=== PATIENT | female | born 2000 | race Caucasian/White ===

== ENCOUNTER 2021-09-02 12:20 | Outpatient (CLI) | payer BC, SELFPAY ==
[2021-09-02 13:06] LABS: Basophils Absolute Auto 0.1 K/mm3 (0.0-0.1); Basophils Percent Auto 0.8 % (0.2-1.2); Eosinophils Absolute Auto 0.1 K/mm3 (0-0.3); Eosinophils Percent Auto 0.8 % (0-4.4); Hematocrit 37.2 % (37.0-47.0); Hemoglobin 12.9 g/dL (12.0-15.0); Immature Granulocyte Absolute 0.05 K/mm3 (0.00-0.031); Immature Granulocyte Percent A 0.7 % (0-0.5); Lymphocytes Absolute Auto 2.99 K/mm3 (0.9-3.2); Lymphocytes Percent Auto 39.8 % (18.3-44.2); Mean Corpuscular HGB Conc 34.7 g/dl (32-36); Mean Corpuscular Hemoglobin 30.5 pg (26-34); Mean Corpuscular Volume 87.9 fl (80-100); Mean Platelet Volume 9.6 fl (7.4-10.4); Monocytes Absolute Auto 0.4 K/mm3 (0.1-0.6); Monocytes Percent Auto 5.7 % (2.6-8.5); Neutrophils Absolute Auto 3.9 K/mm3 (1.3-6.7); Neutrophils Percent Auto 52.2 % (45.5-73.1); Platelet Count Result 347 k/mm3 (150-375); Red Blood Count 4.23 M/mm3 (4.2-5.4); Red Cell Distribution Width 12.1 % (11.5-14.5); White Blood Count 7.5 K/mm3 (4.5-10.0)
[2021-09-02 13:18] LABS: Alanine Aminotransferase 17 U/L (4-35); Albumin Level 4.4 g/dL (3.5-5.1); Alkaline Phosphatase 43 U/L (38-126); Anion Gap 7 mmol/L (8-16); Aspartate Amino Transferase 20 U/L (14-36); Bilirubin,Total 0.4 mg/dL (0.2-1.3); Blood Urea Nitrogen 12 mg/dL (7-17); Calcium 9.4 mg/dL (8.4-10.2); Carbon Dioxide 27 mmol/L (22-30); Chloride 105 mmol/L (98-107); Cholesterol 164 mg/dL (0-200); Estimated Glomerular Filt Rate > 60; Glucose 88 mg/dL (65-110); HDL Direct 58 mg/dL; Sodium 139 mmol/L (137-145); Triglycerides 126 mg/dL (<150)
[2021-09-02 13:29] LABS: LDL Cholesterol Direct 72 mg/dL
== END 2021-09-02 12:21 | disposition home or self-care (01) ==
LOC: ANHLAB 12:22
PROVIDERS: PCP Internal Medicine; Visit Provider Internal Medicine
DX: Z00.00 Encounter for general adult medical examination without abnormal findings (principal)
CPT/HCPCS: 36415; 80053; 80061; 85025

== ENCOUNTER 2021-11-14 01:55 | Day surgery (SDC) | payer BC, SELFPAY ==
--- NOTE | 2021-11-11 15:17 | PC.NURSE ---
Report to the Outpatient Waiting Room, entrance under the green pavilion located off [facility], at time _0830 on date __11/14/21 . OR Time: ___0 . - You and your visitor will be asked a series of questions to screen for COVID 19 for your protection. - A mask is required within the hospital. Preoperative COVID Testing Requirements: No COVID Test needed if: (proof is required; if not received patient will have Rapid Test prior to entry) - Patient has received COVID Vaccine at least 14 days prior to procedure date or - Patient has positive COVID test result within last 90 days of surgery date. COVID Test needed if above criteria is not met If not COVID vaccinated a COVID test must be conducted within 72 hours of surgery and patient is asked to isolate self from time of testing until procedure. You will go to the [facility] for your COVID testing. The [facility] is located at the corner of [address] [facility]. You will only be called if COVID results are positive and your surgeon may reschedule your elective surgery date. Patients may have clear liquids (water, carbonated beverages, clear teas, apple juice) until 3 hours prior to surgery with a maximum of 20 ounces. - No food from midnight until time of surgery - Infants may have breast milk until 4 hours before surgery, infant formula 6 hours prior to surgery. - Children will be allowed to drink immediately following surgery. If applicable, please bring a bottle or sippy cup to assist with drinking. Juice, water, soda, and popsicles are readily available. For infants on formula, please bring formula the day of surgery. Pacifiers are allowed. Take the following medications with a SIP of water the morning of surgery: ___NONE Medications to discontinue per physician ____NONE Date to take last dose Please no make-up, nail somali, hairspray, perfume, deodorant, or body powder the day of surgery. No jewelry (including any body piercings) or valuables the day of surgery, leave them at home. Please take a shower or bath the night before, or the morning of, surgery with an antibacterial soap. Wear comfortable, loose fitting clothing. Children are encouraged to wear pajamas. - Jewelry must be removed prior to entering the operating room. Rings and piercings that are not removed may be cut off. - The hospital will not accept responsibility for valuables. - Please leave all valuables, including medications, at home the day of surgery. If you are going home after surgery, a licensed fuel truck driver must drive you home. - NO public transportation without another adult. - We recommend that an adult stay with you for 24 hours following discharge. - We also recommend that you do not drive, make important decision, drink alcoholic beverages, or take any drugs that were not prescribed by your health care provider for at least 24 hours after your discharge time. For Pediatric surgeries, we recommend two adults accompany the child home (only one inside the building at this time). One visitor will be allowed to accompany the patient into the hospital. Patients visitor will be instructed to remain with patient at all times or leave the building. We will allow the visitor to come back to the postoperative area when patient is ready. Follow any additional instructions given to you from your surgeon. Telephone instructions given to __PATIENT and asked if any additional questions and then verbalized understanding. Patient advised to call surgeon office or pre surgery nurse liaison [phone] if any additional questions.
--- NOTE | 2021-11-14 07:06 | WPDHPUPDATE1 ---
History and Physical Update Update Date/Time: 11/14/21 07:06 History and Physical has been reviewed, including an updated exam of the patient. There are NO changes in the patient's condition. Risks, benefits, and alternatives have been discussed and questions answered. Patient agrees to proceed with procedure.
--- NOTE | 2021-11-14 07:17 | WPDANESEPPF ---
Anes - Initial Pre Proc Eval Procedure: Operation Date: 11/14/21 10:30 Proposed Procedures p Excision Subcutaneous Mass Left Dorsal Wrist - Qamar Sotelo MD <Uvaldo Love MD - Last Filed: 11/19/21 15:25> Date/Time: 11/14/21 07:17 <Uvaldo Love MD - Last Filed: 11/19/21 15:25> Surgeon: Qamar Sotelo MD <Uvaldo Love MD - Last Filed: 11/19/21 15:25> Pre Op Diagnosis: subq mass left dorsal wrist <Uvaldo Love MD - Last Filed: 11/19/21 15:25> Patient Data Age: 21 Gender: F Height: 1.65 m Weight: 54.45 kg <Uvaldo Love MD - Last Filed: 11/19/21 15:25> Allergies Allergy/AdvReac Type Severity Reaction Status Date / Time No Known Allergies Allergy Verified 11/14/21 08:46 <Uvaldo Love MD - Last Filed: 11/19/21 15:25> Home Medications Medication Instructions Recorded Confirmed Type norethindrone acetate 1 mg-ethinyl 1 tablet PO DAILY 09/02/21 11/14/21 History estradiol 20 mcg tablet dextroamphetamine-amphetamine 10 10 mg PO .COMPLEX #60 tablet 09/23/21 11/14/21 Rx mg tablet hydrocodone-acetaminophen 1 tablet PO Q6H PRN #6 tablet MDD 6 11/14/21 Rx <Uvaldo Love MD - Last Filed: 11/19/21 15:25> Patient hx anesthesia problems: none <Alexander Jama DO - Last Filed: 11/14/21 09:21> Family hx anesthesia problems: none <Alexander Jama DO - Last Filed: 11/14/21 09:21> Results Review: All pre-operative results and documents have been reviewed as part of the pre-operative evaluation. <Uvaldo Love MD - Last Filed: 11/19/21 15:25> PMFSH Past Medical History Medical History: Medical History (Updated 11/14/21 @ 07:17 by Uvaldo Love MD) ADD (attention deficit disorder) <Uvaldo Love MD - Last Filed: 11/19/21 15:25> Family History Family History: Family History (Updated 09/02/21 @ 11:12 by Joanna East) Grandparent Breast cancer Cervical cancer Sibling Type 1 diabetes Father Hypertension <Uvaldo Love MD - Last Filed: 11/19/21 15:25> Social History Social History: Social History (Updated 09/02/21 @ 11:09 by Joanna East) Smoking status: Never smoker Alcohol intake: current Alcohol use details: 5 DRINKS PER MONTH Substance use: never Gender identity (if verbalized by the patient): Female Spiritual care concerns: No <Uvaldo Love MD - Last Filed: 11/19/21 15:25> Anes - Eval Final PreProcedure Day of Procedure 11/14/21 07:17 <Uvaldo Love MD - Last Filed: 11/19/21 15:25> Patient weight: normal <Uvaldo Love MD - Last Filed: 11/19/21 15:25> Heart: regular rate and rhythm <Uvaldo Love MD - Last Filed: 11/19/21 15:25> Lungs: clear to auscultation and normal air movement <Uvaldo Love MD - Last Filed: 11/19/21 15:25> Airway: Mallampati scale class II <Uvaldo Love MD - Last Filed: 11/19/21 15:25> Neurological: alert and oriented <Uvaldo Love MD - Last Filed: 11/19/21 15:25> Last oral intake: >/= 8 hours <Uvaldo Love MD - Last Filed: 11/19/21 15:25> ASA classification: I <Uvaldo Love MD - Last Filed: 11/19/21 15:25> Emergent: no <Uvaldo Love MD - Last Filed: 11/19/21 15:25> Anesthetic plan: proceed <Uvaldo Love MD - Last Filed: 11/19/21 15:25> Anesthesia type and monitoring: general GIVS and LMA <Uvaldo Love MD - Last Filed: 11/19/21 15:25> Results Review: All pre-operative results and documents have been reviewed as part of the pre-operative evaluation. <Uvaldo Love MD - Last Filed: 11/19/21 15:25> Informed Consent: The patient's anesthetic plan and its attendant risks and benefits were discussed with the patient/family/POA. Questions were solicited and answers provided to the satisfaction of the patient/family/POA. <Uvaldo Love MD - Last Filed:
[2021-11-14] MEDS: LACTATED RINGERS 1,000 ML 30 ML IV CONT (09:34)
[2021-11-14 09:39] VITALS: BP 96/59; PULSE 62; RESP 16; TEMP 36.7; O2SAT 100
[2021-11-14] MEDS: LIDO 1%/EPINEPHRINE/PF 1:200,000 30 ML VIAL INFILTRATE (10:33)
[2021-11-14 10:43] VITALS: BP 85/51; PULSE 56; RESP 16; O2SAT 100
--- NOTE | 2021-11-14 10:49 | W.PM.PROC2 ---
Procedure Note - Detailed Date of Procedure 11/14/21 Pre-op Diagnosis subq mass left dorsal wrist Post-op Diagnosis Other (Ganglion cyst left dorsal wrist) Procedure Performed Excision of ganglion cyst left dorsal wrist Surgeon Qamar Sotelo MD Anesthesia MAC Findings On cm ganglion cyst penetrating the mid extensor retinaculum Description of Procedure The dorsal wrist mass was marked on the patient in the holding area. She was taken to the operating room and placed supine on the operating table was given IV sedation. The extremity was prepped draped in usual fashion. Mass over the left dorsal wrist was once again marked for excision and locally infiltrated 1% lidocaine with epinephrine. We palpated for the possible nearby adjacent subcutaneous mass but we were not able to it find today. (Digital exploration was also done after elevating the local skin in that area.) The tourniquet was inflated to 250 mmHg. The transverse incision made as marked. Dissection revealed the ganglion cyst just beneath the subcutaneous tissue. This penetrated through the midportion of the extensor retinaculum over the 4th compartment. This was carefully dissected down to the retinaculum. At that point the retinaculum was incised enough to visualize the connection. This cyst did not penetrate the retinaculum. Some thin muscle bellies were identified in that region. The retinaculum was not repaired. The tourniquet was released. A few sites were cauterized and the subcutaneous tissue repaired with 4-0 Monocryl sutures. The dermis was closed with intradermal 4-0 Monocryl. The usual bandage was applied. She was discharged with instructions in wound care and follow-up. A prescription for hydrocodone 5/325 number 4 was sent to her pharmacy. Drains No Packing No Pathology None sent Complications No immediate complications Condition Stable Disposition Same day
[2021-11-14 11:10] VITALS: BP 90/50; PULSE 50; RESP 16; O2SAT 100
[2021-11-14 11:40] VITALS: BP 90/50; PULSE 50; RESP 16
== END 2021-11-14 12:00 | disposition home or self-care (01) ==
PROVIDERS: PCP Internal Medicine; Visit Provider Plastic Surgery
PROC: (CPT 25111; principal; 2021-11-14 10:30)
DX: M67.432 Ganglion, left wrist (principal); F98.8 Other specified behavioral and emotional disorders with onset usually occurring in childhood and adolescence
CPT/HCPCS: 25111; J1100; J2250; J2405; J2704; J3010; J7120

== ENCOUNTER 2021-11-29 10:55 | Outpatient (CLI) | payer BC, SELFPAY ==
--- NOTE | ~2021-11-29 | XR_ITS ---
XR hand LT min 3V DATE: 11/29/2021 11:18 INDICATION: Left hand pain TECHNIQUE: 3 views COMPARISON: None FINDINGS: No fracture or dislocation, periosteal reaction or bone destruction, erosive change or lorraine drocalcinosis. Joint spaces are preserved. IMPRESSION: No significant abnormality Reviewed, dictated and finalized at location A. IMPRESSION: No significant abnormality
== END 2021-11-29 10:56 | disposition home or self-care (01) ==
PROVIDERS: PCP Internal Medicine; Visit Provider Internal Medicine
DX: M79.642 Pain in left hand (principal)
CPT/HCPCS: 73130